=== PATIENT | female | born 1955 | race Caucasian/White ===

== ENCOUNTER 2023-06-14 15:13 | Inpatient (IN) | payer MEDICARE, SELFPAY ==
[2023-06-14 10:14] VITALS: BP 129/78
--- NOTE | 2023-06-14 11:51 | ED.GENMED ---
History of Present Illness
<CAPRICE Parada - Last Filed: 06/14/23 13:48>
General
Chief Complaint: Abdominal Symptoms
Source: patient
Exam Limitations: none
Time Seen by Provider: 06/14/23 11:32
Nursing documentation reviewed up to this point in time: agreed with
Travel History
Have you had any contact with someone who has COVID-19?: No
Do you have any symptoms of coronavirus? Fever > 100 degrees, chills, cough, shortness of breath, sore throat, loss of taste or smell, muscle aches, or headache?: No
History of Present Illness
History of Present Illness:
67 female presents to the ER for evaluation of nausea vomiting diarrhea. Patient has a history of perforated duodenal ulcer with pneumoperitoneum and repair in January 2023, peritonitis sepsis acute kidney injury reflux she reports she started
with diarrhea yesterday and had several episodes of vomiting throughout the night. She reports she cannot keep anything down. She does complain of heartburn. She denies any fever chills no other sick contacts at home.
Past History
<CAPRICE Parada - Last Filed: 06/14/23 13:48>
Past History
ED Past Medical History: HTN
ED Past Surgical History: Gynecological (ecoptic)
Social History
Tobacco: Non-smoker
Alcohol: Daily
Drug: None
Review of Systems
<CAPRICE Parada - Last Filed: 06/14/23 13:48>
Review of Systems
Allergies reviewed?: Yes
All Other Systems: ROS reviewed and negative except as documented in HPI and ROS
Constitutional: Reports no symptoms; Denies fever, fatigue or chills
Respiratory: Reports no symptoms
Cardiac: Reports no symptoms
ABD/GI: Reports nausea, vomiting and diarrhea; Denies abdominal pain
: Reports no symptoms; Denies flank pain, urgency or discharge
Musculoskeletal: Reports no symptoms
Skin: Reports no symptoms
Neurological: Reports no symptoms
Endocrine: Reports no symptoms
Hematologic/Lymphatic: Reports no symptoms
Psychiatric: Reports no symptoms
Phy Exam
<CAPRICE Parada - Last Filed: 06/14/23 13:48>
General Physical Exam
General Presentation: no apparent distress
General age: appears stated age
General Skin: warm and dry
General Habitus: normal
General Mental: alert
General Hydration: dry mucous membranes
Gastrointestinal Exam
Gastrointestinal Exam: non tender, soft and other
Neurological Exam
Neurological Exam: alert and oriented x3
Jg Coma Scale
Eye Opening: Spontaneous
Verbal Response: Oriented
Motor Response: Obeys Commands
GCS Total Score: 15
Musculoskeletal Exam
Musculoskeletal Exam: full ROM
Skin Exam
Skin Exam: normal color and warm/dry
Psychiatric Exam
Psychiatric Exam: normal mood/affect
<Osvaldo David DO - Last Filed: 06/14/23 13:28>
Jg Coma Scale
GCS Total Score: 15
Course
<CAPRICE Parada - Last Filed: 06/14/23 13:48>
Orders/Labs/Results
Orders:
Orders
06/14/23 11:49
IV Insert/Care/Rem.- Treatment PRN
0.9% Sodium Chloride 1000 ml [Nss] 1,000 ml IV BOLUS
06/14/23 11:50
Famotidine [Pepcid] 20 mg IV NOW STA
Ondansetron Injectable [Zofran] 4 mg IV NOW STA
06/14/23 12:21
Abdomen Xray - 1 View [CR Abdomen - 1 View] Urgent
Comment:
Reason For Exam: n/v/d
06/14/23 12:48
Electrocardiogram (*1) Stat
Reason for Study: Other
Other Reason for Exam: chest pain
Cardiac Monitoring- Treatment ONCE
EKG- Treatment ONCE
06/14/23 12:51
Complete Blood Count/With Diff Urgent
Comprehensive Metabolic Panel Urgent
Lipase Urgent
Abnormal Lab Results
06/14/23
12:51
RBC 5.42 H 10^6/uL
(4.20-5.40)
Plt Count 471 H 10^3/uL
(130-400)
Abs Immat Gran (auto) 0.1 H 10^3/uL
(0-0.05)
Absolute Neuts (auto) 8.9 H 10^3/uL
(1.4-6.5)
Absolute Lymphs (auto) 1.0 L 10^3/uL
(1.2-3.4)
Neutrophils % 84.6 H %
(42.2-75.2)
Lymphocytes % 9.3 L %
(20.5-51.1)
Carbon Dioxide 14 L* mmol/L
(22-30)
BUN 46 H mg/dl
(7-17)
Creatinine 2.5 H mg/dL
(0.6-1.0)
Glucose 156 H mg/dl
(70-99)
Calcium 10.3 H mg/dl
(8.4-10.2)
Total Protein 10.3 H g/dl
(6.3-8.2)
Albumin 5.5 H g/dl
(3.5-5.0)
06/14/23 12:51
06/14/23 12:51
Vital Signs
Initial and Last Documented VS:
Initial Vital Signs
Pulse Resp BP Pulse Ox
112 16 129/78 100
06/14/23 10:14 06/14/23 10:14 06/14/23 10:14 06/14/23 10:14
Last Documented Vital Signs
Pulse Resp BP Pulse Ox
112 16 162/77 100
06/14/23 10:14 06/14/23 10:14 06/14/23 13:31 06/14/23 13:31
Butter Production Supervisor consulted with Physician
Butter Production Supervisor consulted with physician?: Yes
Name of Physician Consulted: cristian
<Osvaldo David, DO - Last Filed: 06/14/23 13:28>
Orders/Labs/Results
Orders:
Orders
06/14/23 11:49
IV Insert/Care/Rem.- Treatment PRN
0.9% Sodium Chloride 1000 ml [Nss] 1,000 ml IV BOLUS
06/14/23 11:50
Famotidine [Pepcid] 20 mg IV NOW STA
Ondansetron Injectable [Zofran] 4 mg IV NOW STA
06/14/23 12:21
Abdomen Xray - 1 View [CR Abdomen - 1 View] Urgent
Comment:
Reason For Exam: n/v/d
06/14/23 12:48
Electrocardiogram (*1) Stat
Reason for Study: Other
Other Reason for Exam: chest pain
Cardiac Monitoring- Treatment ONCE
EKG- Treatment ONCE
06/14/23 12:51
Complete Blood Count/With Diff Urgent
Comprehensive Metabolic Panel Urgent
Lipase Urgent
Abnormal Lab Results
06/14/23
12:51
RBC 5.42 H 10^6/uL
(4.20-5.40)
Plt Count 471 H 10^3/uL
(130-400)
Abs Immat Gran (auto) 0.1 H 10^3/uL
(0-0.05)
Absolute Neuts (auto) 8.9 H 10^3/uL
(1.4-6.5)
Absolute Lymphs (auto) 1.0 L 10^3/uL
(1.2-3.4)
Neutrophils % 84.6 H %
(42.2-75.2)
Lymphocytes % 9.3 L %
(20.5-51.1)
Carbon Dioxide 14 L* mmol/L
(22-30)
BUN 46 H mg/dl
(7-17)
Creatinine 2.5 H mg/dL
(0.6-1.0)
Glucose 156 H mg/dl
(70-99)
Calcium 10.3 H mg/dl
(8.4-10.2)
Total Protein 10.3 H g/dl
(6.3-8.2)
Albumin 5.5 H g/dl
(3.5-5.0)
06/14/23 12:51
06/14/23 12:51
Vital Signs
Initial and Last Documented VS:
Initial Vital Signs
Pulse Resp BP Pulse Ox
112 16 129/78 100
06/14/23 10:14 06/14/23 10:14 06/14/23 10:14 06/14/23 10:14
Last Documented Vital Signs
Pulse Resp BP Pulse Ox
112 16 162/77 100
06/14/23 10:14 06/14/23 10:14 06/14/23 13:31 06/14/23 13:31
<CAPRICE Parada - Last Filed: 06/14/23 13:48>
MDM/Problems Addressed
Differential Diagnosis Includes:
Not limited to reflux ulcer viral syndrome dehydration
MDM/Problems Addressed:
Patient is a 67-year-old female who presented to the ER with complaints of nausea vomiting diarrhea since yesterday. Patient does have a history of alcohol abuse she reports he drinks every other day. She also has a history of recent perforated
ulcer in January 2023. She denies any abdominal pain on exam abdomen soft and nontender old surgical scar. Patient appears dry and was given fluids. Patient labs however show a low bicarb of 14 and elevated BUN of 46 and elevated creatinine of
2.5 which is new.
Patient eval by ED physician will require admission for dehydration electrolyte abnormality renal insufficiency dehydration. No no abdominal pain and no acute distress will check a flatplate abdomen
Chronic conditions affecting care:
History of perforated ulcer reflux and alcohol use
<CAPRICE Parada - Last Filed: 06/14/23 13:48>
*Critical Care Note
Total Time (30-74mins, 75-104mins- exclusive of procedures): Not Applicable
ED Attending Note
<CAPRICE Parada - Last Filed: 06/14/23 13:48>
-
Portions of this chart may have been created with voice recognition software.� Occasional wrong word or��sound alike� substitutions may have occurred due to the inherent limitations of voice recognition software.
<Osvaldo David DO - Last Filed: 06/14/23 13:28>
ED Attending Note
Patient seen and examined by attending physician: Yes
I performed the substantive portion of visit, reviewed & personally made and approve the management plan that is documented in note by myself or PATRICIA.: Yes
ED Attending Note:
Seen with FRAME OPENER examined independently 67-year male drinker hypertension nausea vomiting diarrhea looks dry had a peripheral ulcer previously her abdomen is soft, labs noted will require admission
Discharge Plan
Departure
Patient Disposition: Admit
Date of Disposition: 06/14/23
Time of Disposition: 13:47
Admit to: Med/Surg
Presentation/result/management discussed w/ accepting MD/DO: Hospitalist
Patient with high blood pressure during this ER visit?: Yes
Condition: Fair
Covid-19: Not Applicable
Discharge Problem:
vomiting and diarrhea, Acute dehydration, Acute renal insufficiency
Prescriptions:
No Action
metoprolol succinate 50 mg tablet extended release 24 hr
50 mg PO DAILY
amlodipine 5 mg tablet
5 mg PO DAILY
Referrals:
Han Ge MD [Family Provider] -
Interventions
Interventions:
*Risk Screen - Suicide Last Done: 06/14/23 10:14
*General Assessment Last Done: 06/14/23 12:14
*Neglect/Abuse Screening Last Done: 06/14/23 10:14
ED- Fall Risk Assessment Last Done: 06/14/23 12:17
*ED COVID-19 Vaccine History Last Done: 06/14/23 10:14
LG-Kxztos-Daqconpkiz Assessment Last Done: 06/14/23 12:17
[2023-06-14 12:02] VITALS: BMI 22.9
[2023-06-14] MEDS: NSS 1000 IV (12:58)
[2023-06-14] MEDS: ZOFRAN 4 MG IV ×2 (12:58→14:27)
[2023-06-14] MEDS: PEPCID 20 MG IV (12:58)
[2023-06-14 13:03] LABS: % Basophils 0.2 % (0-2); % Immature Granulocytes 0.5 % (0-0.5); % Lymphocytes 9.3 % (20.5-51.1); % Monocytes 5.4 % (1.7-9.3); % Neutrophils 84.6 % (42.2-75.2); Absolute Immature Granulocytes 0.1 10^3/uL (0-0.05); Absolute Monocytes 0.6 10^3/uL (0.1-0.6); Absolute Neutrophils 8.9 10^3/uL (1.4-6.5); Hematocrit 44.4 % (37.0-47.0); Hemoglobin 15.8 g/dL (12.0-16.0); Mean Corp Hgb Conc. 35.6 g/dL (33.0-37.0); Mean Corpuscular Hgb 29.2 pg (27.0-31.0); Mean Corpuscular Volume 81.9 fL (81.0-99.0); Mean Platelet Volume 9.1 fL (7.4-10.4); Nucleated Red Blood Cells % 0 %; Platelet Count 471 10^3/uL (130-400); Red Blood Cell Count 5.42 10^6/uL (4.20-5.40); White Blood Cell Count 10.5 10^3/uL (4.8-10.8)
[2023-06-14 13:18] LABS: ALT (SGPT) 20 U/L (0-35); AST (SGOT) 29 U/L (14-36); Albumin 5.5 g/dl (3.5-5.0); Alkaline Phosphatase 102 U/L (38-126); Blood Urea Nitrogen 46 mg/dl (7-17); Calcium 10.3 mg/dl (8.4-10.2); Carbon Dioxide 14 mmol/L (22-30); Chloride 99 mmol/L (98-107); Estimated Creatinine Clearance 18 ml/min; Glucose 156 mg/dl (70-99); Lipase 119 U/L (23-300); Potassium 4.7 mmol/L (3.5-5.1); Sodium 137 mmol/L (135-145); Total Bilirubin 0.8 mg/dl (0.2-1.3); Total Protein 10.3 g/dl (6.3-8.2); eGFR 20.56
[2023-06-14 13:31] VITALS: BP 162/77
[2023-06-14] MEDS: OMNIPAQUE 50 ML PO (14:09)
--- NOTE | 2023-06-14 14:55 | HPS.HSE ---
Addendum entered and electronically signed by Yen Owusu MD 06/14/23 15:35:
I saw and examined the patient.
The MILITARY COMMUNICATIONS SPECIALIST or PA's note was reviewed and I agree with the note.
Denies any abdominal pain. Admitted with nausea vomiting and diarrhea
Comment:
CVS: S1-S2 normal
Chest: CTA B/L
Abdomen: Soft, NT / Bowel sounds present
Extremities: No edema, normal pulses
HAND POTTER: Non focal exam
#Acute Kidney Injury and Severe Metabolic Acidosis secondary to GI Losses
-Continue IVFs with Bicarb
-Recheck labs in AM
#Nausea / Vomiting / Diarrhea
-No sick contacts or eating or
-CT scan ordered by ED pending
-Check stool studies
-Allow clear liquids
# Prolonged QT
-Monitor on Telemetry
-Replace magnesium
-Avoid QT prolonging medications
#Essential Hypertension
-Continue amlodipine and metoprolol with hold parameters
#Peptic Ulcer Disease s/p Duodenal Perforation Repair
-Continue Protonix
-She stopped taking as OP
# Alcohol use-3-4 times a week
She is planning to stop
Continue PPI
Add thiamine
#Smoking- Cessation Counselling.
#DVT proph: SC Heparin
#Code Status: Full Code
Original Note:
Family Physician
-
Family Physician: Han Ge
Chief Complaint
-
Nausea/Vomiting/Diarrhea
History of Present Illness
Patient is a 67 y/o female with PMH of hypertension and perforated duodenal ulcer s/p modified Avelino patch repair January 2023 who presented to the ED today complaining of nausea, vomiting, and diarrhea. Patient says she has had 12 episodes of
vomiting and several episodes of watery, loose diarrhea since last night. She admits to sweats last night. She denies fever, chills, and abdominal pain. She denies sick contacts or usual food intake.
Medical History
Past Medical History
Past Medical History: Reports Other
Additional Past Medical History:
Essential Hypertension
Peptic Ulcer Disease
Past Surgical History: Reports Other
Additional Past Surgical History:
Exp Lap with Avelino Patch Repair of Duodenal Perforation
Social History
Tobacco: Smoker (Patient reports she quit smoking in Jan 2023 but did smoke a few cigarettes a few days ago)
Alcohol: Occasional (Patient reports no alcohol since her surgery but did have a drink a few days ago)
Drug: None
Family History
Family History: Not pertinent
Allergies / Home Medications
Allergies reflects when Allergies were last updated in [employer].
Home Medications with original date entered in [employer]
Allergy/Medication List:
Allergies
Allergy/AdvReac Type Severity Reaction Status Date / Time
No Known Allergies Allergy Verified 06/14/23 10:18
Home Medications
amlodipine 5 mg tablet 5 mg PO DAILY Blood Pressure 02/17/23
metoprolol succinate 50 mg tablet,extended release 24 hr 50 mg PO DAILY Heart Failure 02/17/23
Review of Systems
-
A 12 point ROS was completed and negative except as noted: Yes
Constitutional: Denies Fever
Respiratory: Denies Cough or Trouble Breathing
Cardiac: Denies Chest Pain or Palpitations
Abdomen/GI: Reports See HPI
Physical Exam
Vital Signs
Vital Signs
Temp Pulse Resp BP Pulse Ox
97.8 F 93 13 162/77 99
06/14/23 13:46 06/14/23 14:45 06/14/23 14:45 06/14/23 13:31 06/14/23 13:45
Physical Exam
General: No Apparent Distress and Comfortable
HEENT: Anicteric and Atraumatic
Respiratory: Clear and Non Labored Respirations
Cardiac: S1/S2, Regular Rhythm and Tachycardia (Slightly)
GI: Soft, Non Tender and Non Distended
Rectal: Deferred by Provider
Musculoskeletal: No Clubbing, No Cyanosis and No Edema
Skin: Warm and Dry
Neuro: Awake, Alert and Oriented
Laboratory Results
-
06/14/23 12:51
06/14/23 12:51
Laboratory Results
Total Bilirubin 0.8 mg/dl (0.2-1.3) 06/14/23 12:51
AST 29 U/L (14-36) 06/14/23 12:51
ALT 20 U/L (0-35) 06/14/23 12:51
Alkaline Phosphatase 102 U/L (38-126) 06/14/23 12:51
Lipase 119 U/L (23-300) 06/14/23 12:51
Data Reviewed
-
Lab Data: Labs Reviewed by me
Old Records: Reviewed
Impression/Plan
-
Acute Kidney Injury and Severe Metabolic Acidosis secondary to GI Losses
-Continue IVFs with Bicarb
-Recheck labs in AM
Nausea / Vomiting / Diarrhea
-CT scan orderede by ED pending
-Check stool studies
-Allow clear liquids
Prolonged QT
-Monitor on Telemetry
-Check magnesium level
-Avoid QT prolonging medications
Essential Hypertension
-Continue amlodipine and metoprolol with hold parameters
Peptic Ulcer Disease s/p Duodenal Perforation Repair
-Continue Protonix
DVT proph: SC Heparin
Code Status: Full Code
[2023-06-14 15:30] LABS: Magnesium 1.5 mg/dl (1.6-2.3)
[2023-06-14] MEDS: SODIUM BICARBONATE 1150 MEQ IV (16:05)
[2023-06-14] MEDS: MAGNESIUM SULFATE 50 IV (16:10)
[2023-06-14 18:06] VITALS: BMI 23.3
[2023-06-14 18:07] VITALS: BP 148/67
[2023-06-14] MEDS: HEPARIN 5000 UNITS SC ×2 (18:29→23:59)
--- NOTE | 2023-06-14 18:32 | TRANSFER ---
Pt admitted into room 426 from ED. Patient ambulated from stretcher to bed without difficulty. AAOx3, no complaints of pain at this time. Telemetry applied, in sinus rhythm. Patient educated on plan of care and oriented to room. Call kidd within
reach.
[2023-06-14] MEDS: THIAMINE INJECTION 200 MG IV (19:16)
[2023-06-14 23:15] VITALS: BP 155/82
[2023-06-15] MEDS: SODIUM BICARBONATE 1150 MEQ IV ×2 (01:55→09:38)
[2023-06-15 03:05] VITALS: BP 121/71
[2023-06-15 08:15] VITALS: BP 100/63
[2023-06-15] MEDS: TOPROL XL 50 MG PO (09:31)
[2023-06-15] MEDS: NORVASC PO (09:32)
[2023-06-15] MEDS: NICODERM TRANSDERMAL 7 MG TRANSDERM (09:32)
[2023-06-15] MEDS: HEPARIN 5000 UNITS SC ×3 (09:33→23:13)
[2023-06-15] MEDS: THIAMINE INJECTION 200 MG IV (09:35)
[2023-06-15] MEDS: NSS (PRESERVATIVE FREE) 10 ML IV (09:35)
[2023-06-15] MEDS: PROTONIX IV 40 MG IV (09:35)
[2023-06-15 11:00] VITALS: BP 138/83
--- NOTE | 2023-06-15 12:24 | W.PN.HOSP.TC ---
Today's Communication/Plan
-
Labs
LRD
Trop
Assessment / Plan
Assessment / Plan
EKG with QTc better. T inversions noted
Had some diarrhea today. Stool studies sent. Patient states she has no nausea or vomiting and wants to eat.
CT of the abdomen and pelvis-no significant changes. Right ovarian cyst 4.1 cm stable
CVS: S1-S2 normal
Chest: CTA B/L
Abdomen: Soft, NT / Bowel sounds present
Extremities: No edema, normal pulses
REIMBURSEMENT MANAGER: Non focal exam
#Acute Kidney Injury and Severe Metabolic Acidosis secondary to GI Losses
-Clinically much better
-Wants to eat-low residue diet ordered
-Labs ordered-pending
# Abnormal EKG-check troponin patient does not have any chest pain
On tele
#Nausea / Vomiting / Diarrhea
-No sick contacts or eating or
-CT scan ordered by ED pending
-Check stool studies
# Prolonged QT
-Monitor on Telemetry
-Replaced magnesium
-Avoid QT prolonging medications
#Essential Hypertension
-Continue amlodipine and metoprolol
#Peptic Ulcer Disease s/p Duodenal Perforation Repair
-Continue Protonix
-She stopped taking as OP
# Alcohol use-3-4 times a week
She is planning to stop
Continue PPI
Add thiamine
#Smoking- Cessation Counselling.
#DVT proph: SC Heparin
#Code Status: Full Code
D/W RN
Anticipated Discharge: Within 24 hours
Subjective/Interval History
-
Date of Service: June 15, 2023
Objective Data
-
Labs:
Laboratory Results
06/15/23
12:21
WBC Pending
Hgb Pending
Hct Pending
Plt Count Pending
Sodium Pending
Potassium Pending
Chloride Pending
Carbon Dioxide Pending
BUN Pending
Creatinine Pending
Glucose Pending
Calcium Pending
Vital Signs:
Vital Signs
Temp Pulse Resp BP Pulse Ox
98.4 F 70 18 138/83 98
06/15/23 11:00 06/15/23 11:00 06/15/23 11:00 06/15/23 11:00 06/15/23 11:00
I&O
06/14/23 06/15/23 06/16/23
06:59 06:59 06:59
Intake Total 1740 / 1740
Balance 1739 174
[2023-06-15 12:56] LABS: Hematocrit 38.1 % (37.0-47.0); Hemoglobin 13.1 g/dL (12.0-16.0); Mean Corp Hgb Conc. 34.4 g/dL (33.0-37.0); Mean Corpuscular Hgb 29.2 pg (27.0-31.0); Mean Platelet Volume 9.3 fL (7.4-10.4); Platelet Count 372 10^3/uL (130-400); Red Blood Cell Count 4.48 10^6/uL (4.20-5.40); Red Cell Dist. Width 13.7 % (11.5-14.5)
[2023-06-15 13:24] LABS: Troponin I < 0.012 ng/ml
[2023-06-15 13:36] LABS: Blood Urea Nitrogen 37 mg/dl (7-17); Calcium 8.7 mg/dl (8.4-10.2); Carbon Dioxide 35 mmol/L (22-30); Chloride 90 mmol/L (98-107); Estimated Creatinine Clearance 41 ml/min; Glucose 104 mg/dl (70-99); Magnesium 2.3 mg/dl (1.6-2.3); Potassium 3.5 mmol/L (3.5-5.1); Sodium 134 mmol/L (135-145); eGFR 55.07
[2023-06-15 15:00] VITALS: BP 125/63
--- NOTE | 2023-06-15 16:32 | CM ---
information technology account manager reviewed patient's chart and met with patient and patient lives with her sister, cousin and nephew in a multilevel home, patient is independent with adl's and ambulation, no dme, patient drives but does not have a car. Patient has a
prescription plan and patient uses uses [facility] pharmacy.
PCP: Dr. Ge
Plan; Home no needs when stable.
[2023-06-15 19:20] VITALS: BP 115/60
[2023-06-15 19:35] LABS: Troponin I < 0.012 ng/ml
[2023-06-15 23:15] VITALS: BP 145/67
[2023-06-16 03:05] VITALS: BP 117/52
[2023-06-16 07:26] VITALS: BP 128/63
[2023-06-16 07:33] LABS: Blood Urea Nitrogen 26 mg/dl (7-17); Calcium 8.7 mg/dl (8.4-10.2); Carbon Dioxide 35 mmol/L (22-30); Chloride 95 mmol/L (98-107); Estimated Creatinine Clearance 56 ml/min; Glucose 93 mg/dl (70-99); Magnesium 2.2 mg/dl (1.6-2.3); Potassium 3.6 mmol/L (3.5-5.1); Sodium 137 mmol/L (135-145); eGFR > 60.00
[2023-06-16] MEDS: NICODERM TRANSDERMAL 7 MG TRANSDERM (07:49)
[2023-06-16] MEDS: PROTONIX IV 40 MG IV (07:49)
[2023-06-16] MEDS: NSS (PRESERVATIVE FREE) 10 ML IV (07:50)
[2023-06-16] MEDS: TOPROL XL 50 MG PO (07:51)
[2023-06-16] MEDS: THIAMINE INJECTION 200 MG IV (07:51)
[2023-06-16] MEDS: HEPARIN 5000 UNITS SC ×3 (07:51→23:28)
[2023-06-16] MEDS: NORVASC 5 MG PO (07:53)
--- NOTE | 2023-06-16 10:03 | PTCARENOTE ---
Patient reports no c/o abdominal pain or discomfort. No watery stools prior to breakfast. Tolerating low residue diet. No nausea or vomiting.
[2023-06-16 11:29] VITALS: BP 130/62
[2023-06-16 15:40] VITALS: BP 136/63
--- NOTE | 2023-06-16 16:47 | W.PN.HOSP.TC ---
Today's Communication/Plan
-
Repeat EKG-routine
Echo
Assessment / Plan
Assessment / Plan
EKG with QTc better. T inversions noted
Had some diarrhea today. Stool studies sent. Patient states she has no nausea or vomiting and wants to eat.
CT of the abdomen and pelvis-no significant changes. Right ovarian cyst 4.1 cm stable
CVS: S1-S2 normal
Chest: CTA B/L
Abdomen: Soft, NT / Bowel sounds present
Extremities: No edema, normal pulses
MANAGER UNIVERSITY: Non focal exam
#Acute Kidney Injury and Severe Metabolic Acidosis secondary to GI Losses
-Clinically much better
-Tolerating diet
-Labs better
# Abnormal EKG-check troponin patient does not have any chest pain
On tele
Denies any cardiac symptoms
Routine echo
#Nausea / Vomiting / Diarrhea
-No sick contacts or eating or
-CT scan ordered by ED pending
-Check stool studies
# Prolonged QT
-Monitor on Telemetry
-Replaced magnesium
-Avoid QT prolonging medications
#Essential Hypertension
-Continue amlodipine and metoprolol
#Peptic Ulcer Disease s/p Duodenal Perforation Repair
-Continue Protonix
-She stopped taking as OP
# Alcohol use-3-4 times a week
She is planning to stop
Continue PPI
Add thiamine
#Smoking- Cessation Counselling.
#DVT proph: SC Heparin
#Code Status: Full Code
D/W RN
Anticipated Discharge: Within 24 hours
Subjective/Interval History
-
Date of Service: June 16, 2023
Objective Data
-
Labs:
Laboratory Results
06/16/23
06:01
Sodium 137
Potassium 3.6
Chloride 95 L
Carbon Dioxide 35 H
BUN 26 H
Creatinine 0.8
Glucose 93
Calcium 8.7
Vital Signs:
Vital Signs
Temp Pulse Resp BP Pulse Ox
98.5 F 68 20 136/63 96
06/16/23 15:40 06/16/23 15:40 06/16/23 15:40 06/16/23 15:40 06/16/23 15:40
I&O
06/15/23 06/16/23 06/17/23
06:59 06:59 06:59
Intake Total 1740 / 1740 1775 / 1775
Balance 1740 / 1740 1775 / 1775
[2023-06-16 19:29] VITALS: BP 121/56
[2023-06-16 23:16] VITALS: BP 146/70
[2023-06-17 03:24] VITALS: BP 140/69
[2023-06-17 07:15] VITALS: BP 158/79
[2023-06-17] MEDS: NICODERM TRANSDERMAL 7 MG TRANSDERM (08:52)
[2023-06-17] MEDS: HEPARIN 5000 UNITS SC ×2 (08:53→15:07)
[2023-06-17] MEDS: THIAMINE INJECTION 200 MG IV (08:53)
[2023-06-17] MEDS: PROTONIX IV 40 MG IV (08:54)
[2023-06-17] MEDS: NSS (PRESERVATIVE FREE) 10 ML IV (08:54)
[2023-06-17] MEDS: TOPROL XL 50 MG PO (08:54)
[2023-06-17] MEDS: NORVASC 5 MG PO (08:54)
[2023-06-17 11:37] VITALS: BP 132/66
--- NOTE | 2023-06-17 14:26 | W.PN.HOSP.TC ---
Today's Communication/Plan
-
Discharge
Assessment / Plan
Assessment / Plan
CT of the abdomen and pelvis-no significant changes. Right ovarian cyst 4.1 cm stable
CVS: S1-S2 normal
Chest: CTA B/L
Abdomen: Soft, NT / Bowel sounds present
Extremities: No edema, normal pulses
SKATING CARHOP: Non focal exam
#Acute Kidney Injury and Severe Metabolic Acidosis secondary to GI Losses
-Clinically much better
-Tolerating diet
-Labs better
# Abnormal EKG-check troponin patient does not have any chest pain
Echo noted mild to moderate MR. Patient is aware about this and follow-up with cardiology discussed
Information given
#Nausea / Vomiting / Diarrhea
-Campylobacter, Shiga toxin, norovirus, C. difficile all negative.
-Salmonella culture pending
-Symptoms all resolved and she is tolerating a diet
# Prolonged QT
-Resolved
-Likely secondary to electrolyte abnormality
EKG has gotten better
#Essential Hypertension
-Continue amlodipine and metoprolol
#Peptic Ulcer Disease s/p Duodenal Perforation Repair
-Continue Protonix
-She stopped taking as OP
# 4.1 cm ovarian cyst-patient stated that she has had this a long time ago. But still aware that needs to follow-up with EMBEDDED SOFTWARE DEVELOPMENT ENGINEER. She sees women's health
# Alcohol use-3-4 times a week
She is planning to stop
Continue PPI and thiamine
#Smoking- Cessation Counselling.
#DVT proph: SC Heparin
#Code Status: Full Code
D/W RN at bed side
Offered to talk to family patient declined.
Anticipated Discharge: Today
Subjective/Interval History
-
Date of Service: June 17, 2023
Objective Data
-
Vital Signs:
Vital Signs
Temp Pulse Resp BP Pulse Ox
98.6 F 57 16 132/66 99
06/17/23 11:37 06/17/23 11:37 06/17/23 11:37 06/17/23 11:37 06/17/23 11:37
I&O
06/16/23 06/17/23 06/18/23
06:59 06:59 06:59
Intake Total 1775 / 1775 2160 / 2160
Balance 1775 / 1775 2160 / 2160
--- NOTE | 2023-06-17 14:32 | W.DS.TRANS ---
Addendum entered and electronically signed by Yen Owusu MD 06/17/23 15:39:
Dictation- [id number]
Original Note:
DC Summary - Hadoop Architect
-
Discharge Instructions:
Discharge Diagnosis/Procedures Gastroenteritis, dehydration, acute kidney
injury, nausea vomiting, hypertension, history
of peptic ulcer with perforation, Mitral
Regurgitation, 4.1 cm right ovarian cyst.
Activity As tolerated
Driving Restrictions As prior to admission
Instructions:
Stand-Alone Forms:
Changes to Home Medications: Yes
Discharge Medications:
DC Medications w/original date entered in [employer]
amlodipine 5 mg tablet 5 mg PO DAILY Blood Pressure 02/17/23
metoprolol succinate 50 mg tablet,extended release 24 hr 50 mg PO DAILY Heart Failure 02/17/23
nicotine 7 mg/24 hr daily transdermal patch 7 mg transdermal DAILY Smoking cessation #0 ea 06/16/23
pantoprazole 40 mg tablet,delayed release (Protonix) 40 mg PO DAILY Gastrointestinal issue #30 tabs 06/16/23
thiamine HCl (vitamin B1) 100 mg tablet 100 mg PO DAILY Supplement #30 tabs 06/16/23
Home Medication Changes
new
nicotine 7 mg/24 hr daily transdermal patch 7 mg transdermal DAILY Smoking cessation #0 ea 06/16/23
pantoprazole 40 mg tablet,delayed release (Protonix) 40 mg PO DAILY Gastrointestinal issue #30 tabs 06/16/23
thiamine HCl (vitamin B1) 100 mg tablet 100 mg PO DAILY Supplement #30 tabs 06/16/23
Pending Results: Yes
Additional Pending Results:
salmonella Cx pending
[2023-06-17 15:20] VITALS: BP 153/79
--- NOTE | 2023-06-17 15:34 | CM ---
CM following re: d/c planning
Chart reviewed
Pt is medically stable for d/c
Pt has no skilled need noted
Pt insurance does not dictate an IMM
PLAN; d/c home no needs
== END 2023-06-17 17:08 | disposition home or self-care (01) | DRG 392 ==
LOC: 4 WEST ACU 15:13
PROVIDERS: Nurse Practitioner; ADMITTING PHYSICIAN Hospitalist; EMERGENCY PHYSICIAN Emergency Medicine; FAMILY PHYSICIAN Family Medicine
DX: K52.9 Noninfective gastroenteritis and colitis, unspecified (principal); N17.9 Acute kidney failure, unspecified; E87.20 Acidosis, unspecified; E86.0 Dehydration; I10 Essential (primary) hypertension; I34.0 Nonrheumatic mitral (valve) insufficiency; N83.201 Unspecified ovarian cyst, right side; F10.90 Alcohol use, unspecified, uncomplicated; Z87.11 Personal history of peptic ulcer disease
CPT/HCPCS: 74018; 74176; 80048; 80053; 83690; 83735; 84484; 85025; 85027; 87045; 87046; 87077; 87324; 87427; 87449; 87798; 89055; 93005; 93306; 96361; 96365; 96366; 96375; 96376; 99285

== ENCOUNTER 2023-07-26 18:33 | Emergency (ER) | payer MEDICARE, SELFPAY ==
[2023-07-26 18:34] VITALS: BMI 25.7
[2023-07-26 18:35] VITALS: BP 168/95
[2023-07-26 19:12] VITALS: BP 158/88
--- NOTE | 2023-07-26 19:37 | ED.GENMED ---
History of Present Illness
General
Chief Complaint: Abdominal Symptoms
Source: patient and records
Exam Limitations: none
Time Seen by Provider: 07/26/23 19:09
Nursing documentation reviewed up to this point in time: agreed with
Travel History
Have you had any contact with someone who has COVID-19?: No
Do you have any symptoms of coronavirus? Fever > 100 degrees, chills, cough, shortness of breath, sore throat, loss of taste or smell, muscle aches, or headache?: No
History of Present Illness
History of Present Illness:
67-year-old female with a past medical history of hypertension, GERD, history of PUD with perforation requiring repair in January 2023 who presents to the emergency room for evaluation of nausea, vomiting, diarrhea. Patient reports onset of
symptoms yesterday�she says that she woke up feeling nauseated and had 2 total episodes of vomiting�nonbloody nonbilious. She says throughout the day yesterday she had multiple episodes of essentially totally liquid nonbloody diarrhea. She says
that the symptoms continued today and so she finally came to the emergency room for assessment. She says she has not had any abdominal pain. She says she has had some 'heartburn' associated with vomiting. She denies any shortness of breath. She
denies URI type symptoms or breathing difficulties. She has not had any fevers or chills. She denies any headache or neck pain/stiffness. She did have similar symptoms in May requiring admission for acute dehydration. She says that she has
been seeing Dr. Smith for gastroenterology and had been on pantoprazole but ran out of her medication few days before onset of symptoms which she thinks may be contributing.
Past History
Past History
ED Past Medical History: HTN
ED Past Surgical History: Gynecological (ecoptic)
Social History
Tobacco: Non-smoker
Alcohol: Daily
Drug: None
Review of Systems
Review of Systems
All Other Systems: ROS reviewed and negative except as documented in HPI and ROS
Constitutional: Denies fever or chills
EENT: Denies sore throat or runny nose
Respiratory: Denies cough or trouble breathing
Cardiac: Reports chest pain (Heartburn)
ABD/GI: Reports nausea, vomiting and diarrhea; Denies abdominal pain or bloody stools
: Denies flank pain
Musculoskeletal: Denies neck pain or back pain
Neurological: Denies dizzy or headache
Phy Exam
Physical Exam
Physical Exam:
General: Awake, alert, oriented x3; no acute distress
Head: Normocephalic, atraumatic
Eyes: Conjunctiva normal, sclera anicteric
Throat: Airway intact, handling secretions
Neck: Trachea midline, supple without meningismus
Lungs: Clear to auscultation bilaterally, no wheezing, rales, rhonchi
Heart: Regular rate and rhythm, no murmurs, gallops, or rubs
Abd: Soft, non distended, nontender; upper abdominal scar from prior surgery
Back: No CVA tenderness
Neuro: No gross deficits
Skin: no rash
Extremities: Warm and well-perfused with no edema
Scores
Heart Failure Risk
Heart Failure Risk Score: Not Applicable
Heart Score for Chest Pain Patients
STEMI patient?: Not applicable
Withdrawal Assessment of Alcohol
Withdrawal Assessment Completed?: Not applicable
Course
Orders/Labs/Results
Orders:
Orders
07/26/23 19:25
Electrocardiogram (*1) Urgent
Reason for Study: Abdominal Pain
EKG- Treatment ONCE
CR Obstruct Series W/pa Chest Urgent
Comment:
Reason For Exam: N/V
07/26/23 19:26
Ondansetron Injectable [Zofran] 4 mg IV NOW STA
Pantoprazole [Protonix IV] 40 mg IV NOW STA
07/26/23 19:30
COVID-19 Antigen Urgent
Source: Nasal Swab
Influenza A+B Rapid Molecular Urgent
CRISTINA Source: Nasal Swab
Specimen Description:
07/26/23 19:44
0.9% Sodium Chloride 500 ml [Nss] 500 ml IV BOLUS
07/26/23 19:45
Complete Blood Count/With Diff Urgent
Comprehensive Metabolic Panel Urgent
Lipase Urgent
Troponin I Urgent
07/26/23 22:15
Green Grabber - Maalox/ NOW (ED Only) Mag Hydrox/Al Hydrox/Simeth [Maalox] 30 ml Phenobarb/Hyoscy/Atropine/Scop [] 10 ml PO NOW
Abnormal Lab Results
07/26/23
19:45
Plt Count 411 H 10^3/uL
(130-400)
Absolute Neuts (auto) 7.8 H 10^3/uL
(1.4-6.5)
Absolute Lymphs (auto) 1.1 L 10^3/uL
(1.2-3.4)
Absolute Monos (auto) 0.8 H 10^3/uL
(0.1-0.6)
Neutrophils % 80.3 H %
(42.2-75.2)
Lymphocytes % 10.8 L %
(20.5-51.1)
Sodium 133 L mmol/L
(135-145)
Carbon Dioxide 16 L mmol/L
(22-30)
BUN 40 H mg/dl
(7-17)
Creatinine 1.3 H mg/dL
(0.6-1.0)
Glucose 142 H mg/dl
(70-99)
Total Protein 9.0 H g/dl
(6.3-8.2)
Albumin 5.1 H g/dl
(3.5-5.0)
07/26/23 19:45
07/26/23 19:45
Vital Signs
Initial and Last Documented VS:
Initial Vital Signs
Temp Pulse Resp BP Pulse Ox
36.6 C 90 20 168/95 100
07/26/23 18:35 07/26/23 18:35 07/26/23 18:35 07/26/23 18:35 07/26/23 18:35
Last Documented Vital Signs
Temp Pulse Resp BP Pulse Ox
36.6 C 90 20 162/82 99
07/26/23 18:35 07/26/23 18:35 07/26/23 18:35 07/26/23 20:00 07/26/23 20:00
MDM/Problems Addressed
Differential Diagnosis Includes:
Gastritis/gastroenteritis, colitis, pancreatitis, anginal equivalent; lower suspicion for bowel obstruction
MDM/Problems Addressed:
67-year-old female presents for evaluation of nausea vomiting diarrhea over the past 48 hours in the setting of recent noncompliance with pantoprazole due to medication running out. Hypertensive but otherwise normal vitals. Physical exam as above.
Will plan to place an IV check labs including CBC and CMP, lipase; check an EKG and a troponin in an abundance of caution given risk factors and age. Will check viral swabs. Send stool studies if able. Check obstruction series. Will treat
symptomatically. Reassess after the above.
Labs reviewed: CBC unremarkable, CMP shows mild DIANE with a creatinine of 1.3 from baseline of 0.9. Troponin undetectable x 1 and with constant symptoms for at least 24 hours this is sufficient to rule out acute PA. Obstruction series reviewed by
me shows no free air, no obstruction or other acute pathology. Clinical reassessment patient improved symptomatically she feels much better after ED treatment. She was given IV fluids here. She has not had additional vomiting or diarrhea.
Suspect that this is likely gastroenteritis. I think she is stable for discharge. Will restart her on pantoprazole as she has had some heartburn. Pepto as needed. Hold on Zofran as she did have slightly prolonged QT on EKG. Will have patient
follow-up with her primary care physician. She feels very comfortable with this plan. We spoke about increasing her fluids at home, follow-up with her PCP next week for lab recheck. All questions answered.
Chronic conditions affecting care:
Hypertension, GERD, PUD
Acute Exacerbation and/or Progression of Chronic Illness:
Acutely hypertensive
Acute Exacerbation and/or Progression of Chronic Illness: HTN
*Radiology
Radiology exam reviewed: preliminary read by ED provider and radiology read reviewed
*Pulse Oximetry
Patient hypoxic: no
*EKG
Interpreted by ED Provider?: Yes
Heart Rate: 88
Rate: normal
Rhythm: sinus
[place]: left axis deviation
Interval: long QT
QRS Pattern: normal QRS
Ischemia: other (Nonspecific T wave abnormalities)
*Critical Care Note
Total Time (30-74mins, 75-104mins- exclusive of procedures): Not Applicable
Data Reviewed
Review of Other/Old Records Reveals: Labs, Records and Discharge Summary
Source: patient and records
ED Attending Note
-
Portions of this chart may have been created with voice recognition software.� Occasional wrong word or��sound alike� substitutions may have occurred due to the inherent limitations of voice recognition software.
Discharge Plan
Departure
Patient Disposition: Home (Routine Discharge)
Date of Disposition: 07/26/23
Time of Disposition: 22:08
Patient with high blood pressure during this ER visit?: Yes
Discharge Problem:
Nausea vomiting and diarrhea
Instructions: Viral gastroenteritis in adults
Prescriptions:
New
pantoprazole 40 mg tablet,delayed release (DR/EC)
40 mg PO DAILY Qty: 30 0RF
bismuth subsalicylate [Pepto-Bismol] 262 mg/15 mL suspension
524 mg PO ONCE PRN (Reason: diarrhea) Qty: 1200 0RF
alum-mag hydroxide-simeth [Maalox Advanced] 200-200-20 mg/5 mL suspension
10 ml PO QID PRN (Reason: dyspepsia) Qty: 3000 0RF
No Action
metoprolol succinate 50 mg tablet extended release 24 hr
50 mg PO DAILY
amlodipine 5 mg tablet
5 mg PO DAILY
nicotine 7 mg/24 hr Patch 24 Hour
7 mg transdermal DAILY Qty: 0 0RF
pantoprazole [Protonix] 40 mg tablet,delayed release (DR/EC)
40 mg PO DAILY Qty: 30 0RF
thiamine HCl (vitamin B1) 100 mg tablet
100 mg PO DAILY Qty: 30 0RF
Referrals:
Han Ge MD [Family Provider] - Follow up in 5-7 days
Activity Restrictions/Additional Instructions:
Thank you for visiting the Emergency Department at [facility].
1. Please schedule a follow up appointment as directed. Call first thing tomorrow morning to make an appointment.
2. If indicated, please take your medications as instructed and indicated on discharge paperwork.
3. If any of your symptoms do not improve, or persist, or become more severe within 6-12 hours, please return to the emergency department for further care.
4. Please return to the emergency department if you develop a headache, neck pain/stiffness, fever greater than 100.4F, chest pain, shortness of breath, persistent nausea, vomiting, slurred speech, difficulty walking, numbness/tingling, weakness,
signs of infection or any other symptoms that are worrisome to you.
Please call [phone] if you have any questions.
Interventions
Interventions:
*Risk Screen - Suicide Last Done: 07/26/23 19:19
*General Assessment Last Done: 07/26/23 19:19
*Neglect/Abuse Screening Last Done: 07/26/23 19:19
*ED COVID-19 Vaccine History Last Done: 07/26/23 18:35
[id number]-Lczpyh-[id number] Assessment Last Done: 07/26/23 20:07
Discharge Date and Time
Print Language: LIBERIAN
[2023-07-26 19:54] LABS: % Basophils 0.2 % (0-2); % Immature Granulocytes 0.3 % (0-0.5); % Lymphocytes 10.8 % (20.5-51.1); % Monocytes 8.4 % (1.7-9.3); % Neutrophils 80.3 % (42.2-75.2); Absolute Lymphocytes 1.1 10^3/uL (1.2-3.4); Absolute Monocytes 0.8 10^3/uL (0.1-0.6); Absolute Neutrophils 7.8 10^3/uL (1.4-6.5); Hematocrit 42.5 % (37.0-47.0); Hemoglobin 15.1 g/dL (12.0-16.0); Mean Corp Hgb Conc. 35.5 g/dL (33.0-37.0); Mean Corpuscular Hgb 29.3 pg (27.0-31.0); Mean Corpuscular Volume 82.4 fL (81.0-99.0); Mean Platelet Volume 9.5 fL (7.4-10.4); Nucleated Red Blood Cells % 0 %; Platelet Count 411 10^3/uL (130-400); Red Blood Cell Count 5.16 10^6/uL (4.20-5.40); Red Cell Dist. Width 13.1 % (11.5-14.5); White Blood Cell Count 9.7 10^3/uL (4.8-10.8)
[2023-07-26 19:57] LABS: COVID-19 Antigen Negative (Negative)
[2023-07-26 20:00] VITALS: BP 162/82
[2023-07-26] MEDS: ZOFRAN 4 MG IV (20:00)
[2023-07-26] MEDS: NSS 500 IV (20:00)
[2023-07-26] MEDS: PROTONIX IV 40 MG IV (20:00)
[2023-07-26 20:18] LABS: Troponin I < 0.012 ng/ml
[2023-07-26 20:22] LABS: ALT (SGPT) 17 U/L (0-35); AST (SGOT) 27 U/L (14-36); Albumin 5.1 g/dl (3.5-5.0); Alkaline Phosphatase 102 U/L (38-126); Blood Urea Nitrogen 40 mg/dl (7-17); Calcium 9.6 mg/dl (8.4-10.2); Carbon Dioxide 16 mmol/L (22-30); Chloride 101 mmol/L (98-107); Estimated Creatinine Clearance 35 ml/min; Glucose 142 mg/dl (70-99); Lipase 109 U/L (23-300); Potassium 4.2 mmol/L (3.5-5.1); Sodium 133 mmol/L (135-145); eGFR 45.07
[2023-07-26 22:31] VITALS: BP 165/75
[2023-07-26] MEDS: MAALOX 10 PO (22:33)
== END 2023-07-26 22:48 | disposition home or self-care (01) ==
LOC: EMR 18:33
PROVIDERS: EMERGENCY PHYSICIAN Emergency Medicine; FAMILY PHYSICIAN Family Medicine
DX: R11.2 Nausea with vomiting, unspecified (principal); R19.7 Diarrhea, unspecified; K30 Functional dyspepsia; Z11.52 Encounter for screening for COVID-19; I10 Essential (primary) hypertension; K21.9 Gastro-esophageal reflux disease without esophagitis; Z87.11 Personal history of peptic ulcer disease; Z85.71 Personal history of Hodgkin lymphoma; Z92.21 Personal history of antineoplastic chemotherapy
CPT/HCPCS: 99284; 96374; 96375; 96361 ×2; 74022; 80053; 83690; 84484; 85025; 87502; 87811; 93005

== ENCOUNTER → 2023-08-12 15:26 | Outpatient (REF) | payer MEDICARE, SELFPAY ==
[2023-08-12 17:04] LABS: ALT (SGPT) 12 U/L (0-35); AST (SGOT) 22 U/L (14-36); Albumin 3.9 g/dl (3.5-5.0); Alkaline Phosphatase 73 U/L (38-126); Blood Urea Nitrogen 16 mg/dl (7-17); Calcium 9.3 mg/dl (8.4-10.2); Carbon Dioxide 21 mmol/L (22-30); Chloride 107 mmol/L (98-107); Glucose 122 mg/dl (70-99); Potassium 4.4 mmol/L (3.5-5.1); Sodium 141 mmol/L (135-145); Total Bilirubin 0.6 mg/dl (0.2-1.3); Total Protein 7.2 g/dl (6.3-8.2); eGFR > 60.00
== END ==
LOC: REG 15:26
PROVIDERS: ATTENDING PHYSICIAN Family Medicine
DX: E86.0 Dehydration (principal); I10 Essential (primary) hypertension
CPT/HCPCS: 36415; 80053